=== PATIENT | male | born 1985 | race Caucasian/White ===

== ENCOUNTER → 2016-12-12 | Outpatient (CLI) | payer OTHER ==
[~2016-12-12] MED LIST: ANTI-DIARRHEAL2 M1 PO; BENTYL20 MG PO; IMURAN50 MG PO; NO MEDICATIONS; NORCO 10-325 TA1 TAB PO
--- NOTE | ~2016-12-12 | US6 ---
[facility] A Service of [facility] RADIOLOGY TEXT RESULTS PATIENT: BETTE GUY LOCATION: [place] : [birth year] UNIT #: [id number] AGE: [address]: Silvina Riddle MD SEX: M ORDER DR: [id number] [address] [id number] MR#: [id number] #: [id number] NAME: BETTE GUY : 1985 SEX: M STUDY DATE/TIME: 12/12/2016 9:09 UNIT: SGUS ROOM: STUDY DESCRIPTION: US Abdominal Limited Attending Physician: Silvina Riddle M.D. Referring Physician: Silvina Riddle M.D. Ordering Physician: Silvina Riddle M.D. Primary Care Physician: Silvina Riddle M.D. MEDICAL IMAGING REPORT This report is preliminary unless electronic signature is present. EXAM Right upper quadrant ultrasound. HISTORY Right upper quadrant pain for 1 month. FINDINGS Ultrasound examination of the right upper quadrant demonstrates coarsened and echogenic hepatic parenchyma characteristic of fatty infiltration of the liver. No hepatic mass or biliary dilatation is identified. The common bile duct measures 3 mm in diameter. Gallbladder is unremarkable. No gallstones or gallbladder distension or wall thickening. Survey of the right kidney demonstrates no hydronephrosis. No renal mass or perinephric fluid or stranding. There is only limited visualization of the pancreatic body which is unremarkable. The remainder of the pancreas was not visualized due to overlying bowel gas. IMPRESSION 1. Mildly coarsened hepatic parenchymal echotexture could be secondary to fatty infiltration. 2. No hepatic mass or biliary dilatation. 3. The gallbladder is unremarkable. 4. Survey of the right kidney is unremarkable. Dictated by... Ramin Courtney M.D. THIS IS AN ELECTRONICALLY VERIFIED REPORT Ramin Courtney M.D. at 12/13/2016 2:15 PM [facility] A Service of [facility] RADIOLOGY TEXT RESULTS PAT[facility]: [id number] [birth year] UNIT #: [id number] AGE: [address]: Silvina Riddle MD SEX: M ORDER DR: TRACI/larissa TD: 12/13/2016 09:08 JOB #: [id number] MEDICAL IMAGING REPORT Page 1 of 1
== END | disposition home or self-care (01) ==
LOC: SGUS 08:53
DX: R10.9 Unspecified abdominal pain (principal); R93.2 Abnormal findings on diagnostic imaging of liver and biliary tract
CPT/HCPCS: 76705

== ENCOUNTER 2016-12-21 22:16 | Emergency (ER) | payer OTHER ==
[~2016-12-21] VITALS: Ht 180.3 cm; Wt 99.8 kg
[~2016-12-21 22:16] MED LIST changes: -NO MEDICATIONS
[2016-12-21] MEDS ORDERED: NO MEDICATIONS (22:35)
== END 2016-12-21 23:41 | disposition home or self-care (01) ==
LOC: SED 22:16
DX: S39.012A Strain of muscle, fascia and tendon of lower back, initial encounter (principal); Z88.0 Allergy status to penicillin; X50.9XXA Other and unspecified overexertion or strenuous movements or postures, initial encounter; Y92.69 Other specified industrial and construction area as the place of occurrence of the external cause; Y99.0 Civilian activity done for income or pay
CPT/HCPCS: 96372; 99283; J1885